=== PATIENT | female | born 1975 | race Two or more races ===

== ENCOUNTER → 2024-11-29 | Outpatient (CLI) | payer MEDICAID, SELFPAY ==
--- NOTE | 2024-11-29 15:45 | XR_ITS ---
Examination: Screening digital mammography, bilateral Computer aided detection 3-D breast Tomosynthesis, bilateral Date and time of exam: November 29, 2024 1512 hours Compared to mammograms dating to September 20, 2018 Indication: Screening Technique: Nonmagnified MLO, CC views of the breasts to been obtained, reconstructed from 3-D Tomosynthesis images. R2 computer aided detection program utilized for evaluation of suspicious masses and/or abnormal calcifications. 3-D Tomosynthesis images obtained. Findings: The breasts are heterogeneously dense, which may obscure small masses 8 mm focal asymmetry inner right breast CC view 4.5 cm from the nipple Impression: BI-RADS Category 0: Incomplete: Need additional imaging evaluation Recommend follow-up spot tomographic views inner upper quadrant right breast to assess 8mm focal asymmetry inner right breast CC view, 4.5 cm from the nipple as well as right breast sonography to complete the workup
== END | disposition home or self-care (01) ==
LOC: CDIM 14:49
PROVIDERS: Referring Provider Specialist; Visit Provider Obstetrics & Gynecology
DX: Z12.31 Encounter for screening mammogram for malignant neoplasm of breast (principal); N64.89 Other specified disorders of breast
CPT/HCPCS: 77063; 77067

== ENCOUNTER → 2024-12-13 | Outpatient (CLI) | payer MEDICAID, SELFPAY ==
--- NOTE | 2024-12-13 | XR_ITS ---
Examination: Breast ultrasound, unilateral, right Date and time of exam: December 13, 2024 0801 hours INDICATIONS: Mammogram November 29, 2024 8mm focal asymmetry inner right breast CC view Technique: Real-time green scale ultrasonographic imaging performed right breast including all 4 quadrants as well as nipple retroareolar and axillary region. Findings: 12:00 circumscribed nodule 8 x 9 mm IMPRESSION: BI-RADS Category 3: Probably benign findings. Recommend 1 additional 6 month right breast sonogram follow-up to document stability of 12:00 nodule described above
--- NOTE | 2024-12-13 07:38 | XR_ITS ---
Examination: Diagnostic digital mammography, unilateral, right Computer aided detection 3-D breast Tomosynthesis, unilateral Date and time of exam: December 13, 2024 0811 hours INDICATIONS: Mammogram November 19, 2024 8mm focal asymmetry inner right breast CC view, 4.5 cm from the nipple Technique: Nonmagnified MLO, CC views of the right breast have been obtained, reconstructed from 3-D Tomosynthesis images. R2 computer aided detection program utilized for evaluation of suspicious masses and/or abnormal calcifications. 3-D Tomosynthesis images obtained. Findings: The breast is heterogeneously dense, which may obscure small masses No suspicious mass is depicted Impression: BI-RADS category 2: Benign findings Return to your to follow-up mammography Please see the right breast sonogram report today indicating 12:00 nodule 9 mm recommend a six-month follow-up right breast sonography
== END | disposition home or self-care (01) ==
LOC: CDIM 07:30
PROVIDERS: PCP Nurse Practitioner Family; Referring Provider Specialist; Visit Provider Specialist
DX: R92.321 Mammographic fibroglandular density, right breast (principal); N63.15 Unspecified lump in the right breast, overlapping quadrants
CPT/HCPCS: 76641; 77061; 77065; G0279